=== PATIENT | male | born 1965 | race Native Hawaiian/Other Pacific Islander ===

== ENCOUNTER 2020-07-15 11:36 | Outpatient (CLI) | payer OTHER | END 2020-07-15 21:39 | disposition home or self-care (01) | LOC: RAD 11:36 | PROVIDERS: ATTEND Registered Nurse | DX: R06.02 Shortness of breath (principal) ==

== ENCOUNTER 2020-07-22 16:20 | Outpatient (CLI) | payer OTHER | END 2020-07-22 19:29 | disposition home or self-care (01) | LOC: RAD 16:20 | PROVIDERS: ATTEND Internal Medicine Rheumatology | DX: M06.4 Inflammatory polyarthropathy (principal); M10.09 Idiopathic gout, multiple sites; M19.041 Primary osteoarthritis, right hand; M19.042 Primary osteoarthritis, left hand ==

== ENCOUNTER 2021-01-20 11:52 | Outpatient (CLI) | payer OTHER ==
[2021-01-20 12:25] LABS: PLATELET COUNT 212 K/uL (142-355)
[2021-01-20 12:31] LABS: POTASSIUM 4.1 mmol/L (3.6-5.2)
== END 2021-01-20 19:19 | disposition home or self-care (01) ==
LOC: LAB 11:52
PROVIDERS: ATTEND Nurse Practitioner Family
DX: R10.32 Left lower quadrant pain (principal)
CPT/HCPCS: 36415; 80053; 82150; 83690; 85027

== ENCOUNTER 2021-01-23 13:27 | Outpatient (CLI) | payer OTHER | END 2021-01-23 20:16 | disposition home or self-care (01) | LOC: LABW 13:27 | PROVIDERS: ATTEND Nurse Practitioner Family | DX: R19.7 Diarrhea, unspecified (principal) | CPT/HCPCS: 82272; 83630; 87015; 87045; 87324; 87328; 87329; 87449; 87899 ==

== ENCOUNTER 2021-03-15 14:29 | Outpatient (CLI) | payer OTHER | END 2021-03-15 20:45 | disposition home or self-care (01) | LOC: RESP 14:29 | PROVIDERS: ATTEND Nurse Practitioner Family | DX: R01.1 Cardiac murmur, unspecified (principal) | CPT/HCPCS: 93005 ==

== ENCOUNTER 2021-04-03 15:15 | Outpatient (CLI) | payer OTHER | END 2021-04-03 21:07 | disposition home or self-care (01) | LOC: RESP 15:15 | PROVIDERS: ATTEND Nurse Practitioner Family | DX: R01.1 Cardiac murmur, unspecified (principal) | CPT/HCPCS: 93225 ==

== ENCOUNTER 2021-11-23 15:18 | Outpatient (CLI) | payer OTHER | END 2021-11-23 19:07 | disposition home or self-care (01) | LOC: RAD 15:18 | PROVIDERS: ATTEND Nurse Practitioner Family | DX: R05.1 Acute cough (principal) ==

== ENCOUNTER 2022-02-07 09:13 | Outpatient (CLI) | payer OTHER | END 2022-02-07 19:09 | disposition home or self-care (01) | LOC: CT 09:13 | PROVIDERS: ATTEND Nurse Practitioner Family | DX: R10.9 Unspecified abdominal pain (principal) | CPT/HCPCS: 36415; 82565; 84520 ==